=== PATIENT | female | born 1970 | race Caucasian/White ===

== ENCOUNTER 2019-07-12 22:25 | Emergency (ER) | payer BC ==
[~2019-07-12] VITALS: Ht 162.6 cm; Wt 77.1 kg
[2019-07-12 22:25] VITALS: BP 156/90
[2019-07-12] MEDS ORDERED: TDAP [DIPH/PERTUSSIS/TET] 0.5 ML VIAL IM ONE ×2 (23:00→23:03)
== END 2019-07-12 23:28 | disposition home or self-care (01) ==
LOC: ER 22:34
DX: S61.214A Laceration without foreign body of right ring finger without damage to nail, initial encounter (principal); G43.909 Migraine, unspecified, not intractable, without status migrainosus; F32.9 Major depressive disorder, single episode, unspecified; Z88.0 Allergy status to penicillin; Z88.2 Allergy status to sulfonamides; Z88.5 Allergy status to narcotic agent; W25.XXXA Contact with sharp glass, initial encounter; Y93.89 Activity, other specified; Y92.89 Other specified places as the place of occurrence of the external cause; Y99.8 Other external cause status
CPT/HCPCS: 73140; 90471; 90715; 99283; A6403